=== PATIENT | male | born 1955 | race Caucasian/White ===

== ENCOUNTER → 2019-03-29 | Outpatient (CLI) | payer MEDICARE, OTHER ==
[~2019-03-29] MED LIST: ASPIR 8181 MG PO; LEXAPRO 10 MG T10 M1; LIVALO2 MG
--- NOTE | 2019-03-29 14:56 | CARDNUC ---
[place] [address] CARDIAC NUCLEAR IMAGING REPORT Name: EVANGELINA STEINBERG Room: [facility]#: [id number] Admission: 03/29/19 Attend Phys: Mamadou Tanner, Discharge: Date of : 51 Date of Service: 03/29/19 1454 Report #: [id number] THIS REPORT FOR: cc: Karen Qureshi Sarah Anne FNP [place], Michael J. MD [facility] ~ APPROVED REPORT Imaging Protocol: Rest Tc-99m/Stress Tc-99m 1 day Study performed: 03/29/2019 09:22:15 Indication: CAD s/p PCI Patient Location: Out-Patient Stress Tech: Yamini Oneil Stress Nurse: Tatiana Park RN NM Tech:KAEL Olsen Ht: 5 ft 11 in Wt: 180 lbs BSA: 2.02 m2 BMI: 25.10 Medical History Medical History: Hyperlipidemia Medications: sas-81 atorvastatin Allergies: atorvastatin Cardiac Risk Factors: Age, Hyperlipidemia, FHX of CAD Previous Cardiac Procedures: PCI Exercise History: Physically active Resting Data Rest SPECT myocardial perfusion imaging was performed in supine position 30 minutes following the intravenous injection of 11.0 mCi of Tc-99m Sestamibi. Time of rest injection: 0755 Date: 03/29/2019 The images were gated to evaluate regional wall motion and calculate left ventricular ejection fraction. Administration Route: IV Administration Site: Right Hand Exercise Stress At peak stress, the patient was injected intravenously with 35.0mCi of Tc-99m Sestamibi. Time of stress injection: 919 Date: 03/29/2019 Administration Route: IV Administration Site: [place] [address] CARDIAC NUCLEAR IMAGING REPORT Name: EVANGELINA STEINBERG Room: [facility]#: [id number] Admission: 03/29/19 Attend Phys: Mamadou Tanner, Discharge: Date of : 51 Date of Service: 03/29/19 1454 Report #: [id number] Gated Stress SPECT was performed 30 minutes after stress injection. The images were gated to evaluate regional wall motion and calculate left ventricular ejection fraction. Prone imaging was performed. Stress Test Details Stress Test: Exercise stress testing was performed using a Jefferson protocol. HR Max Heart Rate (APMHR): 154 bpm Resting HR: 68 bpm Target HR (85% APMHR): 130 bpm Max HR Achieved: 150 bpm % of APMHR: 97 Recovery HR: 98 bpm BP Resting BP: 154/99 mmHg Max BP: 184/90 mmHg Recovery BP: 161/86 mmHg ECG Resting ECG: Sinus Rhythm Stress ECG: Sinus Tachycardia ST Change: None Arrhythmia: None Recovery ECG: Sinus Rhythm Recovery ST Change: None Recovery Arrhythmia: None Clinical Reason for Termination: Fatigue Exercise duration: 9 min sec Exercise capacity: 10.16 METs Overall Exercise Capacity for Age: Superior Functional Aerobic Impairment 97% The patient tolerated standard Jefferson protocol exercise without significant cardiac symptoms. The patient exhibited good exercise tolerance. Stress ECG Conclusion The baseline 12-lead EKG shows sinus rhythm without significant ST segment or T wave abnormality. EKGs obtained during and post exercise showed sinus rhythm and sinus tachycardia with no significant ST segment or T wave changes when compared to baseline. There were no stress[place] [address] CARDIAC NUCLEAR IMAGING REPORT Name: EVANGELINA STEINBERG Room: [facility]#: [id number] Admission: 03/29/19 Attend Phys: Mamadou Tanner, Discharge: Date of : 51 Date of Service: 03/29/19 1454 Report #: [id number] Study Quality Study: Good Artifact: Mild Diaphragmatic artifact Study Data At rest, the left ventricular ejection fraction was 60%.. Post stress, the left ventricular ejection was 56%.. TID = 1.00. Perfusion Perfusion images show a fixed defect that is large in size involving the basal to distal inferior and inferolateral wall. No other significant fixed over a identified. On gated studies there is some mild hypokinesis of the lateral wall. Review of the raw images does show some element of diaphragmatic attenuation artifact. Wall Motion Global LV systolic function is preserved. There is mild hypokinesis of the lateral wall. Nuclear Conclusion ECG Findings: negative for ischemia Clinical Findings: negative for ischemia Nuclear Findings: negative for ischemia Exercise Capacity: normal Left Ventricular Function: preserved Perfusion images show a fixed defect involving the inferior and inferolateral wall. Gated studies show slight wall motion abnormality in this region suggesting prior infarct. There is also a fair amount of attenuation artifact in this region. There were no reversible defects to suggest ischemia. Global LV systolic function is preserved. This is not a high risk study. <Conclusion> The baseline 12-lead EKG shows sinus rhythm without significant ST segment or T wave abnormality. EKGs obtained during and post exercise showed sinus rhythm and sinus tachycardia with no significant ST segment or T wave changes when compared to baseline. There were no stress-induced arrhythmias. <ELECTRONICALLY SIGNED> By: Mamadou Tanner MD, FACC 03/29/19 1454 1454 1454 Mamadou Tanner MD, FACC /INF
== END ==
LOC: M.NUC 03-13 14:33
DX: I25.10 Atherosclerotic heart disease of native coronary artery without angina pectoris (principal); E78.5 Hyperlipidemia, unspecified; Z79.899 Other long term (current) drug therapy